=== PATIENT | male | born 1975 ===

== ENCOUNTER 2018-03-05 05:43 | Emergency (ER) | payer SELFPAY ==
[2018-03-05 06:03] VITALS: BP 149/88; PULSE 78; RESP 22; TEMP 98.7; O2SAT 98
--- NOTE | 2018-03-05 06:06 | C.PDOC ---
History Of Present Illness 43 year old male presents to the ER with a complaint of left lower back pain that began 4 days ago that radiates to the left buttock and leg. Patient states he was removing air conditioning units from his house when he felt a pull to his back muscle. He has been taking tylenol at home with no relief. Denies weakness, numbness, dysuria, hematuria, or incontinence. Time Seen by Provider: 03/05/18 05:55 Chief Complaint (Nursing): Back Pain History Per: Patient History/Exam Limitations: no limitations Onset/Duration Of Symptoms: Days (4) Current Symptoms Are (Timing): Still Present Previous Symptoms: None Associated Symptoms: None Exacerbating Factor(s): Nothing Recent travel outside of the [place]: No Past Medical History Reviewed: Historical Data, Nursing Documentation, Vital Signs Vital Signs: Last Vital Signs Temp 98.7 F 03/05/18 05:48 Pulse 78 03/05/18 05:48 Resp 22 03/05/18 05:48 BP 149/88 03/05/18 05:48 Pulse Ox 98 03/05/18 05:48 - Medical History PMH: HTN, Hypercholesterolemia Family History: States: Unknown Family Hx - Social History Hx Alcohol Use: Yes Hx Substance Use: No - Immunization History Hx Tetanus Toxoid Vaccination: No Hx Influenza Vaccination: No Hx Pneumococcal Vaccination: No Review Of Systems Genitourinary: Negative for: Dysuria, Incontinence, Hematuria Musculoskeletal: Positive for: Back Pain (Left radiating to left buttock and leg) Neurological: Negative for: Weakness, Numbness Physical Exam - Physical Exam Appears: Non-toxic Skin: Normal Color, Warm, Dry Head: Atraumatic, Normacephalic Eye(s): bilateral: Normal Inspection Gastrointestinal/Abdominal: Soft, No Tenderness Back: No CVA Tenderness, Paraspinal Tenderness (Left lumbar) Extremity: Normal ROM (x4) Extremity: Bilateral: Atraumatic Neurological/Psych: Oriented x3, Normal Speech, Normal Motor, Normal Sensation Gait: Steady ED Course And Treatment O2 Sat by Pulse Oximetry: 98 (room air) Pulse Ox Interpretation: Normal Progress Note: Toradol and valium administered. Patient reports improvement of pain, he is resting comfortably in the ER in no acute distress, ambulatory with steady gait, vitals are stable, will discharge home with instructions to follow up with PMD. Disposition Counseled Patient/Family Regarding: Diagnosis, Need For Followup - Disposition Referrals: [facility] [Outside] Disposition: HOME/ ROUTINE Disposition Time: 06:06 Condition: STABLE Additional Instructions: Take medications as directed Apply warm compress to area Return to ER if worse Prescriptions: Cyclobenzaprine [Cyclobenzaprine HCl] 10 mg PO HS #10 tab Ibuprofen [Motrin] 600 mg PO Q6H #30 tab Instructions: Lumbar Muscle Strain (DC) Forms: [employer] (Japanese), Work Excuse Print Language: JAPANESE - Clinical Impression Clinical Impression: Low back strain - PA / GREY TENDER / Resident Statement MD/DO has reviewed & agrees with the documentation as recorded. - Scribe Statement The provider has reviewed the documentation as recorded by the Scribe Eugene Barnes All medical record entries made by the Jennifer were at my direction and personally dictated by me. I have reviewed the chart and agree that the record accurately reflects my personal performance of the history, physical exam, medical decision making, and the department course for this patient. I have also personally directed, reviewed, and agree with the discharge instructions and disposition.
== END 2018-03-05 06:42 | disposition home or self-care (01) ==
LOC: C.ER 05:43
DX: S39.012A Strain of muscle, fascia and tendon of lower back, initial encounter (principal); X58.XXXA Exposure to other specified factors, initial encounter
CPT/HCPCS: 96372; 99283; J1885